=== PATIENT | female | born 1955 | race Caucasian/White ===

== ENCOUNTER 2018-10-27 22:42 | Emergency (ER) | payer MEDICAID, OTHER ==
[~2018-10-27] VITALS: Ht 162.6 cm; Wt 59.3 kg
[~2018-10-27 22:42] MED LIST: METH5TAB2 PO
[2018-10-27 22:48] VITALS: BP 125/83
--- NOTE | 2018-10-27 22:57 | NUR ---
PT AMBULATES FROM TRIAGE TO ROOM WITH STEADY GAIT. PT SITTING IN CHAIR AT THIS TIME, WAITING FOR ERP.
--- NOTE | 2018-10-27 23:45 | NUR ---
PT D/C WITH D/C SUMMARY AND SCRIPTS. ALL QUESTIONS ANSWERED. PT DENIES ANY OTHER NEEDS PERTAINING TO THIS VISIT.
== END 2018-10-27 23:51 | disposition home or self-care (01) ==
LOC: ED 23:34
DX: B02.9 Zoster without complications (principal)
CPT/HCPCS: 99283